=== PATIENT | male | born 1995 | race Caucasian/White ===

== ENCOUNTER 2020-10-22 15:52 | Emergency (ER) | payer OTHER, SELFPAY ==
[2020-10-22 16:16] VITALS: BP 165/83; PULSE 76; RESP 17; TEMP 36.4; O2SAT 99
--- NOTE | 2020-10-22 17:14 | ED.GENADULT ---
HPI - General Adult General Chief complaint: Unspecified Stated complaint: Wants a covid test Time Seen by Provider: 10/22/20 16:35 Source: patient Mode of arrival: ambulatory Limitations: no limitations History of Present Illness HPI narrative: This is a 25-year-old male that presents the emergency department for Covid test. Reports he ate breakfast with his sister yesterday who was having some cold symptoms. Reports she was tested today and is positive for Covid. He denies any symptoms currently. Denies fever, congestion, sore throat, cough, shortness of breath, or abnormal sense of taste or smell. Related Data Home Medications Medication Instructions Recorded Confirmed No Home Medications 04/10/20 04/10/20 Allergies Allergy/AdvReac Type Severity Reaction Status Date / Time No Known Allergies Allergy Mild Verified 12/01/09 00:24 Review of Systems Review of Systems: Narrative: CONSTITUTIONAL: Denies fever ENT: Denies rhinorrhea, congestion, sore throat RESPIRATORY: Denies cough or dyspnea. All systems reviewed & are unremarkable except as noted in HPI and below PMFSH Past Medical History Medical History (Updated 10/22/20 @ 17:17 by Elizabeth Henley PA-C) No active medical problems Social History Social History Smoking status: Never smoker Gender identity (if verbalized by the patient): Male Exam Narrative: Exam Narrative: GENERAL: Well-appearing, well-nourished, and in no acute distress. HEAD: Normocephalic, atraumatic. EYES: EOMI. ENT: Nares clear, no rhinorrhea or epistaxis. Mucous membranes moist. Oropharynx without tonsillar hypertrophy exudate or other lesions. Bilateral TMs pearly vallejo non-bulging NECK: Supple. No adenopathy or masses. CHEST: Clear to auscultation. No respiratory distress. No wheezes rales or rhonchi HEART: Regular rate and rhythm. No murmur heard. Normal peripheral pulses. EXTREMITIES: Normal range of motion. No edema. SKIN: Warm, dry, no rash. NEURO: No focal deficits. Alert and oriented x3. PSYCH: Normal mood and affect Course Vital Signs Vital signs: Vital Signs Temperature 97.6 F 10/22/20 16:16 Pulse Rate 76 10/22/20 16:16 Respiratory Rate 17 10/22/20 16:16 Blood Pressure 165/83 H 10/22/20 16:16 Pulse Oximetry 99 10/22/20 16:16 Temperature 97.6 F 10/22/20 16:16 Pulse Rate 76 10/22/20 16:16 Respiratory Rate 17 10/22/20 16:16 Blood Pressure 165/83 H 10/22/20 16:16 Pulse Oximetry 99 10/22/20 16:16 Medical Decision Making MDM Narrative Medical decision making narrative: Patient presents the emergency department for positive Covid exposure. Requesting testing. He is asymptomatic currently. He is afebrile and nontoxic-appearing. SARS-CoV-2 was sent. Was instructed to follow-up for results and remain self isolated in the meantime Vital Signs Vital Signs: Vital Signs Temperature 97.6 F 10/22/20 16:16 Pulse Rate 76 10/22/20 16:16 Respiratory Rate 17 10/22/20 16:16 Blood Pressure 165/83 H 10/22/20 16:16 Pulse Oximetry 99 10/22/20 16:16 Temperature 97.6 F 10/22/20 16:16 Pulse Rate 76 10/22/20 16:16 Respiratory Rate 17 10/22/20 16:16 Blood Pressure 165/83 H 10/22/20 16:16 Pulse Oximetry 99 10/22/20 16:16 Critical Care Time Critical Care Time Critical Care Time: No Discharge Plan Discharge Clinical Impression: Person under investigation for severe acute respiratory syndrome coronavirus 2 (SARS-CoV-2) infection Patient Disposition: Home, Self-Care Condition: Stable Instructions: COVID-19 (Coronavirus Disease 2019) (ED) Additional Instructions: You were tested today for coronavirus. It is important that you remain self isolated. Your results will likely be back tomorrow Prescriptions: No Action No Home Medications RF: 0 Follow-up/Referrals: Denisa,Alem Pineda APRN [Primary Care Provider] - 1 Day Stand Alone Forms: Work/School Release IP
[2020-10-23 18:21] LABS: SARS-CoV-2 RNA PCR Negative
== END 2020-10-22 17:25 | disposition home or self-care (01) ==
PROVIDERS: Physician Assistant; Emergency Provider Emergency Medicine; PCP Nurse Practitioner Family
DX: Z20.822 Contact with and (suspected) exposure to COVID-19 (principal)
CPT/HCPCS: 99283; C9803; U0003; U0005

== ENCOUNTER 2020-12-01 12:04 | Emergency (ER) | payer OTHER, SELFPAY ==
[2020-12-01 12:17] VITALS: BP 147/84; PULSE 89; RESP 20; TEMP 36.9; O2SAT 98
--- NOTE | 2020-12-01 13:21 | ED.GENADULT ---
HPI - General Adult General Chief complaint: Urogenital-Male Stated complaint: Burning on urination Source: patient Mode of arrival: ambulatory Limitations: no limitations History of Present Illness HPI narrative: Patient presents for evaluation of dysuria for the last few days. He denies any urinary frequency, hesitancy, low back pain, testicular pain, abdominal pain, fevers, chills, nausea, vomiting. He denies underlying history of diabetes. He is engaged to a F2M transgender partner who is not currently on hormone replacement. 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 He denies any problems with ejaculation. He has consumed large amount of soda the past few days and was wondering if this may have been contributory to his symptoms. He is not diabetic. No additional complaints or concerns. Related Data Home Medications Medication Instructions Recorded Confirmed No Home Medications 04/10/20 04/10/20 Allergies Allergy/AdvReac Type Severity Reaction Status Date / Time No Known Allergies Allergy Mild Verified 12/01/09 00:24 Review of Systems Review of Systems: Narrative: CONSTITUTIONAL: Denies fever, chills, or sweats. EYES: Denies visual changes, redness, or discharge. ENT: Denies rhinorrhea, congestion, sore throat, or otalgia. CARDIOVASCULAR: Denies chest pain, palpitations, or edema. RESPIRATORY: Denies cough or dyspnea. GASTROINTESTINAL: Denies abdominal pain, nausea, vomiting, or diarrhea. GENITOURINARY: Reports dysuria. Denies urinary hesitancy, hematuria, urethral discharge, and problems with ejaculate. SKIN: Denies rash or itching. MUSCULOSKELETAL: Denies back pain, joint pain, or myalgia. NEUROLOGIC: Denies headache, numbness, dizziness, or weakness. PSYCHIATRIC: Denies anxiety or depression. [facility] Past Medical History Medical History (Updated 12/01/20 @ 13:30 by RAJANI Jett, KATIE) No active medical problems Surgical History Surgical History No pertinent past surgical history Family History Family History Mother No pertinent past medical history Social History Social History Smoking status: Never smoker Alcohol intake: never Substance use: never Additional living arrangements comments: fiance Gender identity (if verbalized by the patient): Male Sexual Orientation (if Verbalized by the Patient): Bisexual Spiritual care concerns: No Exam Narrative: Exam Narrative: GENERAL: Well-appearing, well-nourished, and in no acute distress. HEAD: Normocephalic, atraumatic. EYES: PERRLA and EOMI. ENT: Nares clear, no rhinorrhea or epistaxis. Mucous membranes moist. Oropharynx without tonsillar hypertrophy exudate or other lesions. Bilateral TMs pearly vallejo nonbulging NECK: Supple. No adenopathy or masses. No carotid bruits or JVD CHEST: Clear to auscultation. No respiratory distress. No wheezes rales or rhonchi HEART: Regular rate and rhythm. No murmur heard. Normal peripheral pulses. ABDOMEN: Soft, nontender, nondistended, normal active bowel sounds. EXTREMITIES: Normal range of motion. No edema. SKIN: Warm, dry, no rash. : No external genital lesions, no inguinal lymphadenopathy. No scrotal swelling. No testicular masses or tenderness. No urethral discharge. NEURO: No focal deficits. Alert and oriented x3. PSYCH: Normal mood and affect. Course Course Emergency Course: This is a 25-year-old male who presents with complaints of dysuria. Low clinical suspicion for STI and there is no evidence of urinary tract infection on labs today. He did elect to be treated empirically for gonorrhea, chlamydia, trichomonas. Advised on safer sex practices. Symptoms are likely related to increa
[2020-12-01] MEDS: AZITHROMYCIN 250 MG TABLET 1000 MG PO (13:30)
[2020-12-01] MEDS: cefTRIAXone 250 MG VIAL 500 MG IM (13:30)
[2020-12-01] MEDS: metroNIDAZOLE 250 MG TABLET 2000 MG PO (13:30)
== END 2020-12-01 13:47 | disposition home or self-care (01) ==
PROVIDERS: Emergency Provider Nurse Practitioner; PCP Nurse Practitioner Family
DX: R30.0 Dysuria (principal)
CPT/HCPCS: 81003; 87491; 87591; 87661; 96372; 99213; A9270; G0463; J0696

== ENCOUNTER 2021-12-29 11:32 | Emergency (ER) | payer OTHER, SELFPAY ==
--- NOTE | ~2021-12-29 | XR_ITS ---
XR chest 2V DATE: 12/29/2021 12:19 INDICATION: Cough, congestion. Patient vapes. TECHNIQUE: 2 views COMPARISON: None FINDINGS: Normal heart size. No hilar or mediastinal enlargement. The lungs are clear of infiltrate o r consolidation. No pleural effusion or pulmonary vascular congestion or pneumothorax. IMPRESSION: No active cardiopulmonary disease Reviewed, dictated and finalized at location A.
[2021-12-29 11:42] VITALS: BP 148/99; PULSE 94; RESP 20; TEMP 36.7; O2SAT 95
--- NOTE | 2021-12-29 12:09 | ED.URI ---
HPI - URI/Sore Throat General Chief Complaint: Upper Respiratory Infection Stated Complaint: Cough,Congestion Time Seen by Provider: 12/29/21 12:00 History of Present Illness HPI Narrative: Noe Frazier is a 26-year-old male with no prior medical history who comes with severe cough and congestion x5 days he took a COVID test at home 3 days ago which was negative but has not improved in symptoms and has been using [id number] cough medication and antihistamine with no improvement. When he coughs he states his chest pain is 8 out of 10 Related Data Allergies Allergy/AdvReac Type Severity Reaction Status Date / Time No Known Allergies Allergy Mild Verified 12/29/21 12:11 Review of Systems Review of Systems: CONSTITUTIONAL: Denies fever, chills, sweats. EYES: Denies visual changes, redness, discharge. ENT: Denies rhinorrhea, has congestion,prior sore throat, otalgia. CARDIOVASCULAR: Denies chest pain, palpitations, edema. RESPIRATORY: Denies dyspnea, bibasilar wheezing, has cough GASTROINTESTINAL: Denies abdominal pain, nausea, vomiting, diarrhea. GENITOURINARY: Denies dysuria, hematuria, abnormal discharge SKIN: Denies rash or itching. NEUROLOGIC: Denies numbness, or focal weakness. PSYCHIATRIC: Denies anxiety or depression. PMFSH Past Medical History Medical History No active medical problems Surgical History Surgical History No pertinent past surgical history Family History Family History Mother No pertinent past medical history Social History Social History Smoking status: Never smoker Alcohol intake: never Substance use: never Additional living arrangements comments: fiance Gender identity (if verbalized by the patient): Male Sexual Orientation (if Verbalized by the Patient): Bisexual Spiritual care concerns: No Comments At time of signature, I agree with nursing past medical, surgical, social and family history. There is no relevant family history pertinent to the presenting complaint. Exam Narrative: GENERAL: This is a well-nourished, well-developed patient, in mild distress. HEAD: normocephalic, atraumatic. EYES: Sclera clear/white. Vision is grossly intact. EARS: External ears normal, auditory canals mild erythema and without drainage, TMs normal without perforation. Hearing grossly intact. NOSE: External nose normal without nasal discharge, nares without redness, has rhinorrhea. THROAT: Mucous membranes moist, posterior pharynx erythema NECK: Neck supple, non-tender CARDIOVASCULAR: Regular rate and rhythm without murmurs, gallops, or rubs. RESPIRATORY: Diminished to auscultation. Breath sounds equal bilaterally. Bibasilar wheezes, rales, or rhonchi. GASTROINTESTINAL: Abdomen soft, large pannus SKIN: warm, intact with no suspicious lesions or rash, good texture and turgor. NEURO: awake, alert, and oriented to person, place and time. There were no obvious focal neurologic abnormalities. Steady gait EXTREMITIES: Normal range of motion. BACK: Nontender without deformity Course Course Emergency Course: Patient here with cough and sinus symptoms x5 days COVID test -3 days ago Chest x-ray shows no active pulmonary disease, lungs are clear of infiltrate or consolidation, no pleural effusion or congestion Started on prednisone, Harvey Murray bronchitis Level of Care: Express Care Visit Vital Signs Vital signs: Vital Signs Temperature 98.1 F 12/29/21 11:42 Pulse Rate 94 12/29/21 11:42 Respiratory Rate 12/29/21 11:42 Blood Pressure 148/99 H 12/29/21 11:42 Pulse Oximetry 95 12/29/21 11:42 Oxygen Delivery Room Air 12/29/21 11:42 Temperature 98.1 F 12/29/21 11:42 Pulse Rate 94 12/29/21 11:42 Respiratory Rate
== END 2021-12-29 12:51 | disposition home or self-care (01) ==
PROVIDERS: Emergency Provider Nurse Practitioner
DX: J40 Bronchitis, not specified as acute or chronic (principal)
CPT/HCPCS: 71046; 99213; G0463

== ENCOUNTER 2022-02-15 13:03 | Emergency (ER) | payer OTHER, SELFPAY ==
[2022-02-15 13:14] VITALS: BP 165/100; PULSE 87; RESP 18; TEMP 36.2; O2SAT 98
--- NOTE | 2022-02-15 13:27 | ED.LOWEXIN ---
HPI - Extremity Injury (Lower) General Chief Complaint: Extremity Injury, Lower Stated Complaint: lt foot injury Time Seen by Provider: 02/15/22 13:27 Source: patient Mode of arrival: ambulatory Limitations: no limitations History of Present Illness HPI Narrative: 26-year-old male presenting for complaint of left heel laceration about 2 hours prior to arrival. He was walking barefoot when he stepped on a piece of metal that cut the heel. He underwent with baby wipes and applied a diaper initially, and then cleansed the wound and applied Coban when he returned home. Unsure of last tetanus. No pain at rest. Rates pain 3 out of 10 with bearing weight. Bleeding is controlled. Related Data Allergies Allergy/AdvReac Type Severity Reaction Status Date / Time No Known Allergies Allergy Mild Verified 02/15/22 13:38 Review of Systems Review of Systems: CONSTITUTIONAL: Denies body aches, fever, chills, or sweats. EYES: Denies visual changes, redness, or discharge. ENT: Denies rhinorrhea, congestion CARDIOVASCULAR: Denies chest pain, palpitations, or edema. RESPIRATORY: Denies cough or dyspnea. GASTROINTESTINAL: Denies abdominal pain, nausea, vomiting, or diarrhea. SKIN: left lateral heel with laceration MUSCULOSKELETAL: Denies back pain, joint pain, or myalgia. NEUROLOGIC: Denies headache, numbness, tingling, or weakness. [facility] Past Medical History Medical History No active medical problems Surgical History Surgical History No pertinent past surgical history Family History Family History Mother No pertinent past medical history Social History Social History Smoking status: Never smoker Alcohol intake: never Substance use: never Additional living arrangements comments: fiance Gender identity (if verbalized by the patient): Male Sexual Orientation (if Verbalized by the Patient): Bisexual Spiritual care concerns: No Comments At time of signature, I have reviewed and agree with nursing past medical, surgical, social and family history unless otherwise noted. Please see nursing chart for further information. There is no relevant family history pertinent to the presenting complaint Exam Narrative: GENERAL: Well-appearing HEAD: Normocephalic, atraumatic. EYES: conjunctivae clear, and EOMI. ENT: Mucous membranes moist. Oropharynx without edema, erythema or lesions. CHEST: Clear to auscultation. HEART: Regular rate and rhythm. SKIN: Left lateral heel with approx 0.5cm irregular laceration, bleeding controlled, no fb, no swelling. NEURO: Alert and oriented x3. Course Course Emergency Course: Patient is aware of diagnosis, understands and agrees to treatment plan. Anticipatory guidance given. Patient agrees to follow-up as directed and is aware of reasons to seek care at the emergency department. Portions of this record may have been created with voice recognition software Level of Care: Express Care Visit Vital Signs Vital signs: Vital Signs Temperature 97.2 F L 02/15/22 13:14 Pulse Rate 87 02/15/22 13:14 Respiratory Rate 18 02/15/22 13:14 Blood Pressure 165/100 H 02/15/22 13:14 Pulse Oximetry 98 02/15/22 13:14 Oxygen Delivery Room Air 02/15/22 13:14 Temperature 97.2 F L 02/15/22 13:14 Pulse Rate 85 02/15/22 14:21 Respiratory Rate 18 02/15/22 13:14 Blood Pressure 122/70 02/15/22 14:21 Pulse Oximetry 98 02/15/22 13:14 Oxygen Delivery Room Air 02/15/22 13:14 Reviewed Procedures Laceration left heel: Date: 02/15/22 Size (cm): 0.5 Description: flap and irregular Depth: simple, single layer Pre-repair: wound explored and irrigated ====== Skin Level ====== Skin layer closed
[2022-02-15] MEDS: TETANUS,DIPHTHERIA,AC PERTUSSIS ADULT (0.5 ML) BOOSTRIX IM (13:53)
[2022-02-15 14:21] VITALS: BP 122/70; PULSE 85
== END 2022-02-15 14:21 | disposition home or self-care (01) ==
PROVIDERS: Emergency Provider Nurse Practitioner Family; PCP Nurse Practitioner Family
DX: S91.312A Laceration without foreign body, left foot, initial encounter (principal); W45.8XXA Other foreign body or object entering through skin, initial encounter
CPT/HCPCS: 12001; 90471; 90715; 99213; G0463

== ENCOUNTER 2022-02-16 12:07 | Emergency (ER) | payer OTHER, SELFPAY ==
[2022-02-16 12:16] VITALS: BP 143/90; PULSE 76; RESP 18; TEMP 36.3; O2SAT 98
--- NOTE | 2022-02-16 12:25 | ED.WOUNDLAC ---
HPI - Wound/Laceration General Chief Complaint: Wound/Laceration Stated Complaint: Left Foot Wound Open Time Seen by Provider: 02/16/22 12:18 Source: patient Mode of arrival: ambulatory Limitations: no limitations History of Present Illness HPI narrative: Mr. Frazier is a 26-year-old male patient presenting to the clinic today with complaints of a laceration to his left heel. He reports he sustained a laceration yesterday and was seen in our clinic for this. He had received a tetanus at that time. The provider used skin glue and Steri-Strips. Patient reports when he got home from his visit the screen door hit his left heel and the Steri-Strips ripped off and the wound dehisced. He denies any pain or redness/swelling. He has not yet begun his Keflex prescription Related Data Allergies Allergy/AdvReac Type Severity Reaction Status Date / Time No Known Allergies Allergy Mild Verified 02/16/22 12:13 Review of Systems Review of Systems: Pertinent positives per HPI. Patient denies any fever, chills, rash, headache, visual changes, dizziness, cough, runny nose, sore throat, shortness of breath, chest pain, palpitations, nausea, vomiting, diarrhea, constipation, abdominal pain, or any urinary issues. PMFSH Past Medical History Medical History No active medical problems Surgical History Surgical History No pertinent past surgical history Family History Family History Mother No pertinent past medical history Social History Social History Smoking status: Never smoker Alcohol intake: never Substance use: never Additional living arrangements comments: fiance Gender identity (if verbalized by the patient): Male Sexual Orientation (if Verbalized by the Patient): Bisexual Spiritual care concerns: No Comments At the time of my signature, I reviewed and agree with the nursing past medical, surgical, social, and family history. There is no relevant family history pertinent to the patient complaint. Exam Narrative: General: Well-developed, well nourished, in no apparent distress Head: Normocephalic, atraumatic. Cardio: Regular rate and rhythm, s1 and s2 normal, no murmur appreciated. Resp: Clear to auscultation bilaterally, no rhonchi, rales, wheezing or rubs. Integumentary: [place], warm, and dry, 1 cm laceration to the left lateral heel that has dehisced. Has serosanguineous discharge coming from the wound. No redness, swelling, with mild tenderness to palpation Course Course Emergency Course: Portions of this record may have been created with voice recognition software. Level of Care: Express Care Visit Vital Signs Vital signs: Vital Signs Temperature 36.3 C L 02/16/22 12:16 Pulse Rate 76 02/16/22 12:16 Respiratory Rate 18 02/16/22 12:16 Blood Pressure 143/90 H 02/16/22 12:16 Pulse Oximetry 98 02/16/22 12:16 Oxygen Delivery Room Air 02/16/22 12:16 Temperature 36.3 C L 02/16/22 12:16 Pulse Rate 76 02/16/22 12:16 Respiratory Rate 18 02/16/22 12:16 Blood Pressure 143/90 H 02/16/22 12:16 Pulse Oximetry 98 02/16/22 12:16 Oxygen Delivery Room Air 02/16/22 12:16 Vital signs reviewed MDM - Wound/Laceration MDM Narrative Medical decision making narrative: At the time of visit patient is resting comfortably on the exam table. He has a 1 cm dehisced laceration to the left heel. Skin glue has kept the flap adhered to the wound bed. Do not recommend suturing at this time as this wound is over 24 hours old. Supportive measures were discussed with the patient he voiced understanding of discharge instructions and agrees to treatment plan. Differential Diagnosis Differential diagnosis: Likely laceration, avulsion of skin and other (Wound infection)
== END 2022-02-16 12:48 | disposition home or self-care (01) ==
PROVIDERS: Emergency Provider Nurse Practitioner Family; PCP Nurse Practitioner Family
DX: S91.312A Laceration without foreign body, left foot, initial encounter (principal); X58.XXXA Exposure to other specified factors, initial encounter
CPT/HCPCS: 99212; G0463

== ENCOUNTER 2022-04-27 10:40 | Emergency (ER) | payer OTHER, SELFPAY ==
[2022-04-27 10:55] VITALS: BP 150/91; PULSE 108; RESP 18; TEMP 36.7; O2SAT 97
--- NOTE | 2022-04-27 11:11 | ED.URI ---
HPI - URI/Sore Throat General Chief Complaint: Upper Respiratory Infection Stated Complaint: Cough,Body Aches Time Seen by Provider: 04/27/22 11:00 Source: patient Mode of arrival: ambulatory Limitations: no limitations History of Present Illness HPI Narrative: Mr. Jasmeet Salas is a 27-year-old male patient presenting to clinic today with complaints of cough, body aches, vomiting, chest congestion, sore throat, and left-sided ear pain times 1 week. He reports that he has not had a fever. No known sick contacts. Reports that his girlfriend started coughing this morning. States that he has been coughing so hard that he has had a vomit and is short of breath during this period. MD elicited complaint: cough, sore throat, nasal congestion and other (Body aches, chest congestion) Related Data Allergies Allergy/AdvReac Type Severity Reaction Status Date / Time No Known Allergies Allergy Mild Verified 04/27/22 10:47 Review of Systems Review of Systems: Pertinent positives per HPI. Patient denies any fever, chills, rash, headache, visual changes, dizziness, chest pain, palpitations,diarrhea, constipation, abdominal pain, or any urinary issues. [facility] Past Medical History Medical History No active medical problems Surgical History Surgical History No pertinent past surgical history Family History Family History Mother No pertinent past medical history Social History Social History Smoking status: Never smoker Alcohol intake: never Substance use: never Additional living arrangements comments: fiance Gender identity (if verbalized by the patient): Male Sexual Orientation (if Verbalized by the Patient): Bisexual Spiritual care concerns: No Comments At the time of my signature, I reviewed and agree with the nursing past medical, surgical, social, and family history. There is no relevant family history pertinent to the patient complaint. Exam Narrative: General: Well-developed, obese, in no apparent distress Head: Normocephalic, atraumatic Eyes: Pupils equally round and reactive to light bilaterally, EOM intact, sclera and conjunctive clear, no discharge, lids normal Ears: TMs intact and clear, ear canals ceremonious, no drainage, grossly hearing normal. Nose: Nares patent, clear nares discharge, no inflammation, no sinus tenderness. Mouth: Oral pharynx without lesions or masses, good dentition, MMM. Postnasal drip Neck: Supple, trachea midline, no enlargement of anterior or posterior cervical nodes, no thyroid masses or goiter palpable. Cardio: Regular rate and rhythm, s1 and s2 normal, no murmur appreciated. Resp: Expiratory wheezing and rhonchi, no rales or rubs Course Course Emergency Course: Portions of this record may have been created with voice recognition software. Level of Care: Express Care Visit Vital Signs Vital signs: Vital Signs Temperature 36.7 C 04/27/22 10:55 Pulse Rate 108 H 04/27/22 10:55 Respiratory Rate 18 04/27/22 10:55 Blood Pressure 150/91 H 04/27/22 10:55 Pulse Oximetry 97 04/27/22 10:55 Oxygen Delivery Room Air 04/27/22 10:55 Temperature 36.7 C 04/27/22 10:55 Pulse Rate 108 H 04/27/22 10:55 Respiratory Rate 18 04/27/22 10:55 Blood Pressure 150/91 H 04/27/22 10:55 Pulse Oximetry 97 04/27/22 10:55 Oxygen Delivery Room Air 04/27/22 10:55 Vital signs reviewed MDM - URI/Sore Throat MDM Narrative Medical decision making narrative: At the time of visit patient is resting comfortably on exam table. Patient has expiratory wheezing and rhonchi. Symptoms have been ongoing for 1 week so I will go ahead and treat her bronchitis given prescription for azithromycin, albuterol, and prednisone. Suppor
== END 2022-04-27 11:20 | disposition home or self-care (01) ==
PROVIDERS: Emergency Provider Nurse Practitioner Family; PCP Nurse Practitioner Family
DX: J40 Bronchitis, not specified as acute or chronic (principal)
CPT/HCPCS: 99213; G0463